=== PATIENT | female | born 1955 | race Two or more races ===

== ENCOUNTER 2019-02-15 17:29 | Emergency (ER) | payer OTHER ==
[~2019-02-15] VITALS: Ht 167.6 cm; Wt 72.6 kg
[~2019-02-15 17:29] MED LIST: VOLTAREN50 MG
== END 2019-02-15 20:00 | disposition home or self-care (01) ==
LOC: ER 17:29
DX: G57.82 Other specified mononeuropathies of left lower limb (principal); M79.671 Pain in right foot